=== PATIENT | female | born 1960 | race Caucasian/White ===

== ENCOUNTER 2018-06-20 12:29 | Emergency (ER) | payer SELFPAY ==
[2018-06-20] MEDS ORDERED: METOCLOPRAMIDE HCL INJ/PF 10 MG/2 ML SDV IV ONE (13:01)
[2018-06-20] MEDS ORDERED: DIPHENHYDRAMINE HCL 50 MG/ML VIAL IV ONE (13:02)
[2018-06-20] MEDS ORDERED: HYDROMORPHONE HCL INJ/PF 2 MG/ML AMPULE IV ONE (13:03)
--- NOTE | 2018-06-20 13:03 | ER Document Report ---
ED Medical Screen (RME) - General Chief Complaint: Headache Stated Complaint: HEADACHE Time Seen by Provider: 06/20/18 13:01 Mode of Arrival: Ambulatory Information source: Patient Notes: 58-year-old female with a history of migraines and hypertension who presents to the emergency room with a migraine had for the past week. She denies fever, chills. It is similar to previous migraines. Physical Exam - Vital signs Vitals: Temp Pulse Resp BP Pulse Ox 97.5 F 87 21 H 196/112 H 97 06/20/18 12:34 06/20/18 12:34 06/20/18 12:34 06/20/18 12:34 06/20/18 12:34 Course - Vital Signs Vital signs: Temp Pulse Resp BP Pulse Ox 97.5 F 87 21 H 196/112 H 97 06/20/18 12:34 06/20/18 12:34 06/20/18 12:34 06/20/18 12:34 06/20/18 12:34
[2018-06-20] MEDS ORDERED: NORMAL SALINE 500 ML IV ONE (13:21)
[2018-06-20 13:39] LABS: ABSOLUTE BASOPHILS # (AUTO) 0.1 10^3/uL (0.0-0.2); ABSOLUTE EOSINOPHILS # (AUTO) 0.2 10^3/uL (0.0-0.6); ABSOLUTE LYMPHOCYTES (AUTO) 2.6 10^3/uL (0.5-4.7); ABSOLUTE MONOCYTES (AUTO) 0.5 10^3/uL (0.1-1.4); ABSOLUTE NEUT (AUTO) 4.8 10^3/uL (1.7-8.2); BASOPHILS % (AUTO) 1.4 % (0-2); EOSINOPHILS % (AUTO) 2.2 % (0-6); HEMATOCRIT 45.9 % (36.0-47.0); LYMPHOCYTES % (AUTO) 31.9 % (13-45); MEAN CORPUSCULAR HEMOGLOBIN 31.3 pg (27.0-33.4); MEAN CORPUSCULAR HGB CONC 34.8 g/dL (32.0-36.0); MEAN CORPUSCULAR VOLUME 90 fl (80-97); MONOCYTES % (AUTO) 6.3 % (3-13); PLATELET COUNT 215 10^3/uL (150-450); RED CELL DISTRIBUTION WIDTH 14.2 % (11.5-14.0); SEGMENTED NEUTROPHILS % (AUTO) 58.2 % (42-78); TOTAL CELLS COUNTED % (AUTO) 100 %; WHITE BLOOD COUNT 8.3 10^3/uL (4.0-10.5)
[2018-06-20 13:59] LABS: ALANINE AMINOTRANSFERASE 41 U/L (9-52); ALBUMIN 4.4 g/dL (3.5-5.0); ALKALINE PHOSPHATASE 89 U/L (38-126); ANION GAP 7 (5-19); ASPARTATE AMINO TRANSFERASE 28 U/L (14-36); BILIRUBIN,DIRECT 0.5 mg/dL (0.0-0.4); BILIRUBIN,TOTAL 1.1 mg/dL (0.2-1.3); BLOOD UREA NITROGEN 7 mg/dL (7-20); CALCIUM 8.8 mg/dL (8.4-10.2); CARBON DIOXIDE 31 mmol/L (22-30); CHLORIDE 99 mmol/L (98-107); GLUCOSE 124 mg/dL (75-110); POTASSIUM 3.6 mmol/L (3.6-5.0); SODIUM 136.5 mmol/L (137-145); TOTAL PROTEIN 7.9 g/dL (6.3-8.2)
[2018-06-20] MEDS ORDERED: ONDANSETRON HCL INJ/PF 4 MG/2 ML SDV ONE (14:41)
--- NOTE | 2018-06-20 14:53 | ER Document Report ---
ED General - General Mode of Arrival: Ambulatory Information source: Patient <NANO BRIGGS - Last Filed: 06/20/18 23:32> <THANIA SMITH - Last Filed: 06/20/18 23:34> - General Chief Complaint: Headache Stated Complaint: HEADACHE Time Seen by Provider: 06/20/18 13:01 Notes: Patient is a 58 year old female with a history of migraines presents to the emergency department complaining of a left sided headace. Patient states her current headache feels similar to her previous migraines and contributes it to the stress of recently having to take care of her mother. Patient states the pain has "slowed down some" since receiving medications in triage. She also complains of photophobia and phonophobia. Patient is actively vomiting at beside although she denies any nausea or vomiting prior to receiving Dilaudid. (NANO BRIGGS) - Related Data Allergies/Adverse Reactions: No Known Allergies Allergy (Verified 06/20/18 13:04) Past Medical History - General Information source: Patient - Social History Smoking Status: Current Every Day Smoker Cigarette use (# per day): Yes - 1/2 PPD Chew tobacco use (# tins/day): No Frequency of alcohol use: None Drug Abuse: Marijuana - states occasional to help with anxiety Family History: Reviewed & Not Pertinent Patient has suicidal ideation: No Patient has homicidal ideation: No - Past Medical History Cardiac Medical History: Reports: Hx Hypercholesterolemia, Hx Hypertension Past Surgical History: Reports: Hx Hysterectomy, Hx Tonsillectomy <NANO BRIGGS - Last Filed: 06/20/18 23:32> Review of Systems - Review of Systems Constitutional: No symptoms reported EENT: See HPI Cardiovascular: No symptoms reported Respiratory: No symptoms reported Gastrointestinal: No symptoms reported Genitourinary: No symptoms reported Female Genitourinary: No symptoms reported Musculoskeletal: No symptoms reported Skin: No symptoms reported Hematologic/Lymphatic: No symptoms reported Neurological/Psychological: See HPI, Headaches <NANO BRIGGS - Last Filed: 06/20/18 23:32> Physical Exam <NANO BRIGGS - Last Filed: 06/20/18 23:32> <THANIA SMITH - Last Filed: 06/20/18 23:34> - Vital signs Vitals: Temp Pulse Resp BP Pulse Ox 97.5 F 87 21 H 196/112 H 97 06/20/18 12:34 06/20/18 12:34 06/20/18 12:34 06/20/18 12:34 06/20/18 12:34 - Notes Notes: GENERAL: Alert, interacts well, actively vomiting in bed. Appears uncomfortable. HEAD: Normocephalic, atraumatic. EYES: Pupils equal, round, and reactive to light. Extraocular movements intact. ENT: Oral mucosa moist, tongue midline. NECK: Full range of motion. Supple. Trachea midline. LUNGS: Clear to auscultation bilaterally, no wheezes, rales, or rhonchi. No respiratory distress. HEART: Regular rate and rhythm. No murmurs, gallops, or rubs. ABDOMEN: Soft, non-tender. Non-distended. Bowel sounds present in all 4 quadrants. EXTREMITIES: Moves all 4 extremities spontaneously. No edema, radial and dorsalis pedis pulses 2/4 bilaterally. No cyanosis. NEUROLOGICAL: Alert and oriented x3. Normal speech. PSYCH: Normal affect, normal mood. SKIN: Warm, diaphoretic, normal turgor. No rashes or lesions noted. (NANO BRIGGS) Course - Laboratory Result Diagrams: 06/20/18 13:28 06/20/18 13:28 <NANO BRIGGS - Last Filed: 06/20/18 23:32> - Laboratory Result Diagrams: 06/20/18 13:28 06/20/18 13:28 <THANIA SMITH - Last Filed: 06/20/18 23:34> - Re-evaluation Re-evalutation: 06/20/18 16:01 Patient initially did not tolerate the Dilaudid well, was dizzy, diaphoretic and vomiting. Patient was then given Zofran and the Benadryl which is on national back order was replaced by Vistaril. Patient was then rechecked and now she is feeling much better, she was sleeping, awakened easily, states that the headache is completely gone and the disease are almost entirely gone. Patient will be discharged home. Advised to take full strength aspirin immediately the onset of any migraine and also try Reglan and Benadryl for at home treatment. Also counseled to stop taking her blood pressure medication every other day and return to the way it was prescribed, given information regarding [facility] as she states she is taking her blood pressure medications every other day because she does not have insurance or a doctor. (THANIA SMITH) - Vital Signs Vital signs: Temp Pulse Resp BP Pulse Ox 97.5 F 58 L 18 166/93 H 94 06/20/18 12:34 06/20/18 16:00 06/20/18 16:00 06/20/18 16:00 06/20/18 16:00 - Laboratory Laboratory results interpreted by me: 06/20/18 06/20/18 13:28 13:28 Hgb 16.0 H RDW 14.2 H Sodium 136.5 L Carbon Dioxide 31 H Glucose 124 H Direct Bilirubin 0.5 H Discharge <NANO BRIGGS - Last Filed: 06/20/18 23:32> <THANIA SMITH - Last Filed: 06/20/18 23:34> - Discharge Clinical Impression: Migraine headache without aura Qualifiers: Status migrainosus presence: with status migrainosus Intractability: intractable Qualified Code(s): G43.011 - Migraine without aura, intractable, with status migrainosus Condition: Stable Disposition: HOME, SELF-CARE Additional Instructions: On your discharge instructions there is information about the [facility]. Please call and see if you qualify to be seen there. They may help you to be able to find some lower cost medications and find medical care at a more affordable [place] depending on your income. Please do not skip doses of your blood pressure medications. Please take them every day. Please take a 325 mg of aspirin immediately at the onset of your next migraine, this is been shown in some studies to stop the migraine in approximately 50% of cases. Do not do this more than twice a week. You may also take the Reglan and 2 [id number] Benadryl for a total of 50 mg of Benadryl to treat your next migraine. Prescriptions: Metoclopramide HCl [Reglan 10 mg Tablet] 10 mg PO ASDIR PRN #10 tablet PRN Reason: migraine headache Referrals: [facility] [Provider Group] - Follow up as needed Scribe Attestation: 06/20/18 23:34 I personally performed the services described in the documentation, reviewed and edited the documentation which was dictated to the scribe in my presence, and it accurately records my words and actions. (THANIA SMITH) Scribe Documentation - Scribe Written by Luci:: Luci Matthews, 06/20/2018 15:12 acting as scribe for :: Carmela <NANO BRIGGS - Last Filed: 06/20/18 23:32>
[2018-06-20] MEDS ORDERED: HYDROXYZINE HCL INJ 50 MG/1 ML VIAL IM ONE (15:17)
[2018-06-20 16:46] VITALS: BP 166/93
== END 2018-06-20 16:20 | disposition home or self-care (01) ==
LOC: ER 12:29
DX: G43.011 Migraine without aura, intractable, with status migrainosus (principal); R42 Dizziness and giddiness; R61 Generalized hyperhidrosis; R11.10 Vomiting, unspecified; T40.2X5A Adverse effect of other opioids, initial encounter; Y92.238 Other place in hospital as the place of occurrence of the external cause; H53.149 Visual discomfort, unspecified; F17.210 Nicotine dependence, cigarettes, uncomplicated; F12.10 Cannabis abuse, uncomplicated; I10 Essential (primary) hypertension
CPT/HCPCS: 99284; 96372; 96361; 96374; 96375; 36415; 85025; 80053; J3490; J2765; J1170; J2405